=== PATIENT | male | born 1960 | race Caucasian/White ===

== ENCOUNTER 2016-08-04 19:40 | Emergency (ER) | payer MEDICAID ==
[2016-08-04] MEDS ORDERED: Albuterol/Ipratropium Neb 3 ML AERS HHN ONE ×2 (20:14→20:49)
--- NOTE | 2016-08-04 20:37 | ED Physician Chart ---
Chief Complaint/HPI - Patient Information Date Seen:: 08/04/16 Time Seen:: 20:32 Chief Complaint:: feels ill History of Present Illness:: 2 days hx of feeling worse sick.. pt has had diarhea 3x today brown and watery w no blood. felt like he had a fever earlier. feels chills/ache. 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 nonsmoker. no leg pains or edema. no abd p. no hx of asthma. pos DM and HTN. Allergies:: Allergies Allergy/AdvReac Type Severity Reaction Status Date / Time No Known Allergies Allergy Verified 08/04/16 20:21 Vitals:: Vital Signs - 8 hr 08/04/16 19:54 Temp 100.0 F HR 96 RR 17 BP 123/74 O2 Sat % 98 Historian:: Patient Review of Systems - Review of Systems General/Constitutional: Fever, No fever, Chills, No chills, No weight loss, No weakness, No diaphoresis, No edema, No loss of appetite Skin: No skin lesions, No rash, No bruising Head: No headache, No light-headedness Eyes: No loss of vision, No pain, No diplopia ENT: No earache, No nasal drainage, No sore throat, No tinnitus Neck: No neck pain, No swelling, No thyromegaly, No stiffness, No mass noted Cardio Vascular: No chest pain, No palpitations, No PND, No orthopnea, No edema Pulmonary: No SOB, Cough, No sputum, Wheezing GI: No nausea, No vomiting, Diarrhea, No pain, No melena, No hematochezia, No constipation, No hematemesis G/U: No dysuria, No frequency, No hematuria Musculoskeletal: No bone or joint pain, No back pain, No muscle pain Endocrine: No polyuria, No polydipsia Psychiatric: No prior psych history, No depression, No anxiety, No suicidal ideation Hematopoietic: No bruising, No lymphadenopathy Allergic/Immuno: No urticaria, No angioedema Neurological: No syncope, No focal symptoms, No weakness, No paresthesia, No headache, No seizure, No dizziness, No confusion, No vertigo Past Medical History - Past Medical History Past Medical History: HTN, DM Social History: Non Smoker, No Alcohol, No Drug Use Medication: Reviewed Family Medical History - Family Member Grandmother Hx Family Hypertension: Yes Physical Exam - Physical Examination General/Constitutional: Awake, Well-developed, well-nourished, Alert, No distress, GCS 15, Non-toxic appearing, Ambulatory Head: Atraumatic Eyes: Lids, conjuctiva normal, PERRL, EOMI Skin: Nl inspection, No rash, No skin lesions, No ecchymosis, Well hydrated, No lymphadenopathy ENMT: External ears, nose nl, TM canals nl, Nasal exam nl, Lips, teeth, gums nl , Oropharynx nl, Tonsils nl Other ENMT comments:: sig ear wax accumulations in b ear canals...i am barely able to see past and there is norm TMs. cn 2-12 wnl. no leg edema or leg pain. Neck: Nontender, Full ROM w/o pain, No JVD, No nuchal rigidity, No bruit, No mass, No stridor Respiratory: Nl effort/Exclusion, Clear to Auscultation, No Wheeze/Rhonchi/Rales Cardio Vascular: RRR, No murmur, gallop, rubs, NL S1 S2 GI: No tenderness/rebounding/guarding, No organomegaly, No hernia, Normal BS's, Nondistended, No mass/bruits, No McBurney tenderness : No CVA tenderness Extremities: No tenderness or effusion, Full ROM, normal strength in all extremities, No edema, Normal digits & nails Neuro/Psych: Alert/oriented, DTR's symmetric, Normal sensory exam, Normal motor strength, Judgement/insight normal, Mood normal, Normal gait, No focal deficits Misc: normal gait, Normal back, No paraspinal tenderness Labs/Radiology/EKG Results - Lab Results Results: Laboratory Tests 08/04/16 08/04/16 08/04/16 20:37 20:37 20:37 WBC 6.2 RBC 5.23 Hgb 14.7 Hct 43.8 MCV 83.7 MCH 28.0 MCHC Differential 33.5 RDW 12.5 Plt Count 312 MPV 8.3 Band Neutrophils % 0 Neutrophils (Manual) 69 Lymphocytes 16 L Monocytes 13 H Eosinophils 2 Basophils 0 Platelet Estimate ADEQUATE Platelet Morphology NORMAL RBC Morph Micro Appear NORMAL Sodium 125 L Potassium 4.7 Chloride 94 L Carbon Dioxide 26.1 Anion Gap 9.6 BUN 15 Creatinine 1.1 Est GFR ( Amer) > 60.0 Est GFR (Non-Af Amer) > 60.0 BUN/Creatinine Ratio 13.6 Glucose 301 H Hemoglobin A1c % Calcium 9.0 Total Bilirubin 1.1 H AST 20 ALT 23 Alkaline Phosphatase 54 Creatine Kinase Troponin I < 0.01 L Total Protein 7.3 Albumin 3.8 L Globulin 3.5 Albumin/Globulin Ratio 1.1 08/04/16 08/04/16 20:37 20:37 WBC RBC Hgb Hct MCV MCH MCHC Differential RDW Plt Count MPV Band Neutrophils % Neutrophils (Manual) Lymphocytes Monocytes Eosinophils Basophils Platelet Estimate Platelet Morphology RBC Morph Micro Appear Sodium Potassium Chloride Carbon Dioxide Anion Gap BUN Creatinine Est GFR ( Amer) Est GFR (Non-Af Amer) BUN/Creatinine Ratio Glucose Hemoglobin A1c % 10.2 H Calcium Total Bilirubin AST ALT Alkaline Phosphatase Creatine Kinase 55 Troponin I Total Protein Albumin Globulin Albumin/Globulin Ratio - Radiology Results Results: cxr nad - EKG Interpretations EKG Time:: 20:45 Rhythm: a-fib Rate: 92 Comments:: pt was unaware of any afib hx. he usually takes a asa /day but hasnt for last week bc of plan for dental sx. He is on atenolol for his BP which likely explains his SVR. ED Septic Shock - . Is Septic Shock (SBP<90, OR Lactate>4 mmol\L) present?: No - <6hrs of presentation: Vital Signs: Vital Signs - 8 hr 08/04/16 19:54 Temp 100.0 F HR 96 RR 17 BP 123/74 O2 Sat % 98 Reassessment (Disposition) - Reassessment Reassessment:: explained to pt I am concerned that his DM is very poorly ctrld and also he has new onset a-fib. Have advised pt we would admit him for DM ctrl and cardiac evaluation. I have explained he is at risk of a stroke w untxd afib and inadequate anticoagulation.... pt had many questions and I answered them as well as possible w patience. Pt said he needs to run home and turn off appliances etc...[place] the . I advised pt that it is not what I reccomend and if he wants to go home he should sign a ama form...he is free to return at any time. pt seems to be hesitant to be admitted..seems to think he doesnt need it? Have tried to reason w him.. he reports that he feels some better breathing since alb/atr neb (was ordered before ecg done ) Reassessment Condition:: Improved - Diagnosis Diagnosis:: 1 fever of unclear etiology 2 new onset a fib 3 poorly ctrld DM 4 left AMA - Aftercare/Follow up Instructions Aftercare/Follow-Up Instructions:: Counseled pt regarding lab results/diagnosis & need follow up - Patient Disposition Discharge/Transfer:: Against Medical Advice Condition at Disposition:: Improved ED Discharge Plan - Patient Disposition Admit/Discharge/Transfer: AGAINST MEDICAL ADVICE
[2016-08-04 21:00] LABS: HEMATOCRIT 43.8 % (39.0-49.0); HEMOGLOBIN 14.7 gm/dL (13.2-17.3); MEAN CELL VOLUME 83.7 fl (80-99); MEAN CORPUSCULAR HGB CONC 33.5 pg (28.0-36.0); MEAN PLATELET VOLUME 8.3 fl; PLATELET COUNT 312 Th/cmm (150-400); RED BLOOD COUNT 5.23 Mil/cmm (4.30-5.70); RED CELL DISTRIBUTION WIDTH 12.5 % (11.5-20.0); WHITE BLOOD COUNT 6.2 Th/cmm (4.8-10.8)
[2016-08-04] MEDS ORDERED: Aspirin 81mg Chewable Tab PO STA (21:09)
[2016-08-04 21:10] LABS: ALB/GLOB RATIO 1.1 (1.0-1.8); ALKALINE PHOSPHATASE 54 U/L (34-104); ANION GAP 9.6 (7.0-16.0); BILIRUBIN,TOTAL 1.1 mg/dL (0.3-1.0); BUN - UREA NITROGEN 15 mg/dL (7-25); BUN/CREATININE RATIO 13.6; CARBON DIOXIDE 26.1 mEq/L (21.0-31.0); CHLORIDE 94 mEq/L (98-107); CREATININE - SERUM 1.1 mg/dL (0.7-1.3); GLUCOSE 301 mg/dL (70-105); POTASSIUM SERUM 4.7 mEq/L (3.5-5.1); SGOT 20 U/L (13-39); SGPT/ALT 23 U/L (7-52); SODIUM SERUM 125 mEq/L (136-145)
[2016-08-04] MEDS ORDERED: Aspirin 81mg Chewable Tab ONE ×2 (21:34→21:35)
[2016-08-04 22:08] LABS: BAND NEUTROPHILE 0 % (0-10); BASOPHIL 0 % (0-3); EOSINOPHIL 2 % (0-5); NEUTROPHILS 69 % (40-80); PLATELET ESTIMATE ADEQUATE (NORMAL); TOTAL CELLS COUNTED 100
[2016-08-04 22:09] LABS: PLATELET MORPHOLOGY NORMAL (NORMAL)
--- NOTE | 2016-08-05 10:05 | Diagnostic Imaging Report ---
Portable chest x-ray HISTORY: Cough The heart size is difficult to assess with portable technique in a poor inspiration. No acute focal pulmonary processes. No hilar or mediastinal abnormalities. IMPRESSION: 1. No acute focal pulmonary processes
== END 2016-08-04 22:08 | disposition left against medical advice (07) ==
LOC: ER 19:40
DX: R50.9 Fever, unspecified (principal); I48.91 Unspecified atrial fibrillation; I10 Essential (primary) hypertension; E11.9 Type 2 diabetes mellitus without complications
CPT/HCPCS: 36415-UA; 71010-TC; 80053-TC; 82550-TC; 83036-90; 84484-TC; 85007-TC; 85027-TC; 93005; Z7610

== ENCOUNTER 2016-08-05 00:22 | Inpatient (IN) | payer MEDICAID ==
--- NOTE | 2016-08-05 00:47 | General Progress Note ---
Subjective - Review of Systems Service Date: 08/05/16 Events since last encounter: pt did return to ED at 12 midnt. he is now willing to be admission. His PE is basically unchanged w BP ok. pt alert and ambulatory around ED in no distress and talking w many questions. no neuro defecits. hrt irreg irreg w rate 80s abd s/nt extr nontndr. 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 she requests we start abx w zosyn has been ordered after mutual agreement. it is unclear what source is but ua has not returned. cxr was clear. will consult Dr Perez. 1 fever of unclear etiology in Diabetic 2 new onset a fib 3 poorly ctrld DM 4 hyponatremia Plan is admit to ICU for cardiac rule out and sepsis work up and correction of NA to improve cardiac stability condition: serious Objective - Physical Exam Vitals and I&O: Vital Signs Temp 98.9 F 08/05/16 00:25 Pulse 88 08/05/16 00:25 Resp 18 08/05/16 00:25 BP 128/82 08/05/16 00:25 Pulse Ox 97 08/05/16 00:25 Intake & Output 08/04/16 08/04/16 08/05/16 06:59 18:59 06:59 Weight (lbs) 96.162 kg Active Medications: Current Medications Piperacillin Sod/Tazobactam (Sod 3.375 gm/ Sodium Chloride) 50 mls @ 100 mls/ hr IV X1 ONE Stop: 08/05/16 01:06
[2016-08-05] MEDS ORDERED: Piperacillin Sodium/Tazobact 3.375 gm Vial IV ONE ×2 (00:57→04:49)
[2016-08-05] MEDS ORDERED: Hydrocodone/APAP 5mg/325mg Tab PO PRN (01:27)
[2016-08-05] MEDS: D5-0.45NS 1,000 ML IV SCH ×2 (02:48→23:34)
[2016-08-05 03:21] VITALS: BP 130/70
[2016-08-05] MEDS: INSULIN ASPART SLIDING SCALE 100 UNITS/ML UNIT SUBQ SCH ×4 (06:37→21:30)
[2016-08-05 12:24] LABS: URINE BILIRUBIN NEGATIVE (NEGATIVE); URINE COLOR YELLOW; URINE GLUCOSE (UA) 500 mg/dL (NEGATIVE); URINE KETONE NEGATIVE (NEGATIVE)
[2016-08-05 12:25] LABS: URINE BLOOD NEGATIVE (NEGATIVE); URINE EPITHELIAL CELLS OCCASIONAL /lpf (FEW); URINE PH 5.5; URINE PROTEIN NEGATIVE (NEGATIVE); URINE RBC NONE SEEN /hpf (0-5); URINE UROBILINOGEN 0.2 E.U./dL (0.2 - 1.0); URINE WBC 0-2 /hpf (0-5)
[2016-08-05 12:26] LABS: URINE BACTERIA FEW /hpf (NONE SEEN)
[2016-08-05] MEDS: LEVALBUTEROL HHN PRN ×3 (16:48→22:10)
[2016-08-05] MEDS: LEVALBUTEROL HHN SCH (22:10)
--- NOTE | 2016-08-06 01:02 | History & Physical ---
HISTORY OF PRESENT ILLNESS: This is a 56-year-old male who was admitted here through the emergency room for the evaluation of his new onset atrial fibrillation and rule out acute coronary syndrome. Other medical issues also include uncontrolled diabetes, sugar in the range of 300. This patient is a 56-year-old male who was known to our practice in the past, but he has not been a regular patient and he has come to our office only once with a history of diabetes and hypertension. His first visit also was to be referred to a precision lens technician for the evaluation of his abscess on the left arm and on the scalp on the left side. We did do the initial visit and gave him all the routine labs to be done and recorded his medications which was he was taking 1000 mg of metformin once a day and 10 mg of glipizide daily in the morning for the diabetes and he also was on atenolol 100 mg daily and enalapril for his hypertension and diabetic nephropathy. The patient was very noncompliant and did not go for his labs and according to him he says that he went through a few financial difficulties and also family problems and he was taking care of his mother for 5 years who and his father who does not live in [place] was also going through his last stages of his life and he was caring of him and he also , so during that process, the patient says that he has lost his job in the sense he could not make the money and he lost his home and several factors affected his way of living and his diet, exercise, etc. Hence, his diabetes became uncontrolled and he also stopped checking his blood sugar because his machine was not working, but he did not follow up with the office anytime, but this time, he came to the emergency room with a history of cough and chest pain more so when he coughed, and also shortness of breath and with the bronchospasm and in the emergency room, he was evaluated with all his lab work which shows that his hemoglobin A1c was 10.2 and his glucose was 312, and his sodium was decreased to 125. Chest x-ray was negative, but EKG has shown atrial fibrillation, which was rate controlled, probably because of the atenolol 100 mg and at that point, the patient, because he was noncompliant and we wanted to bring him for the observation and to be evaluated by a industrial education teacher and also to rule out acute coronary syndrome. So, he was put under telemetry in the [facility], and the patient was monitored closely and IV fluids were started, and also sepsis workup was done in lieu of his history of abscess in the past and also his diabetes, uncontrolled and him not feeling well and the cough, shortness of breath, and bronchospasm. Antibiotics Zosyn 3.125 mg started in the IV, which was continued. FAMILY HISTORY: The patient's family history is significant for diabetes for his mother and father in the later stages and history of some cancer in the family, but no other significant family history noted. PAST MEDICAL HISTORY: As mentioned above in the history of present illness. He has a history of diabetes, hypertension, and history of abscess in the past. Also, he had a history of panic attack x 1 and unspecified anxiety. MEDICATION LIST: See the reconciliation list. He is on metformin 1000 mg once a day; 10 mg of glipizide once a day; atenolol 100 mg; enalapril, check the dose in the chart; and he also takes as needed Ativan for his unspecified anxiety. ALLERGIES: None. SOCIAL HISTORY: He denied smoking, drugs, or alcohol abuse. 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 ALLERGIES: None to any medication. REVIEW OF SYSTEMS: All the 12-point system was reviewed and then the patient currently denied having any fever, denied having any neurological symptoms of headaches, dizziness, and of seizures and denied chest pain or palpitations, but he was complaining of the bronchospasm, cough, and shortness of breath and unexplained fever on and off, which made him feel really sick. Endocrine donovan, he has a history of diabetes, which is currently uncontrolled and abdomen has no abdominal distention and no abdominal pain. Genitourinary donovan, no dysuria, and no polyuria. Extremities have no clubbing and no edema. PHYSICAL EXAMINATION: GENERAL: He is a well-grown, well-behaved gentleman who was apologizing for not coming to the clinic on a regular basis, and he is well developed and well grown, and he weighs about 96.16 kg. VITAL SIGNS: Temperature 98, pulse 77, blood pressure 109/61, respirations 17, and saturation 95% on the room. HEAD: Atraumatic and normocephalic. EYES: Pupils are reactive to light and equal bilaterally. EARS, NOSE, AND THROAT: Normal. MOUTH: He is scheduled for dental work. Dentures to be given for the upper jaw next week, but now he is not sure whether he will get it done now because of his hospitalization, otherwise there is no other issue. NECK: Supple. No JVD. LUNGS: Clear to auscultate and no wheezing was noted except shallow breathing and decreased breath sounds bilaterally. S1 and S2 heard. Rate was controlled and as per the EKG, it is atrial fibrillation, newly diagnosed because never known before. EXTREMITIES: No clubbing. No cyanosis. No edema. His upper left extremity has an abscess, which was removed by Dermatology and he also had an abscess in the scalp, otherwise skin turgor is normal and no other lesions noted. NEUROLOGIC: Nonfocal. PSYCHIATRIC: Negative except for a history of panic attack x 1 and unspecified anxiety on and off, which has resolved with Xanax. LABORATORY DATA: Reviewed and labs showed sodium of 125, potassium of 4.7, chloride 94, pO2 of 26.1. BUN of 15 and creatinine of 1.1. Glucose 301. WBC 6.2, hemoglobin 14.7, hematocrit 43.8, and platelet 312,000. Hemoglobin A1c of 10.2 and lactic acid 1.27 within normal limits. CPK 219 also within the range. Troponin less than 0.01. ASSESSMENT: This is a 56-year-old male with; 1. Atrial fibrillation, new onset, rate controlled. 2. Rule out acute coronary syndrome. 3. Uncontrolled diabetes and hyperglycemia. 4. Hypertension. 5. History of abscess on the left arm and the scalp in the past. 6. Cough, shortness of breath, and bronchospasm. 7. Anxiety, unspecified. 8. Fever of unclear etiology. 9. Hyponatremia. 10. Full Code. PLAN: To admit him to the Tele and continue his cardiac enzymes every 8 hours x 3. Electronic Prepress Operator Roddy Perez will be consulted to evaluate his atrial fibrillation in the light of his uncontrolled diabetes and also to rule out acute coronary syndrome. Antibiotics will be continued in lieu of the sepsis workup and fever of unclear etiology. Breathing treatments will be given with the Xopenex as a routine 3 times a day and then p.r.n. q. 4h. for the cough, shortness of breath, and bronchospasm. ADA diet of 1800 and low-sodium will be given and will continue the IV fluid. We will monitor the patient. Accu-Chek will be done with a sliding scale with regular insulin. Plan is to observe him till tomorrow and if the Cardiology workup comes out negative and if his cardiac enzymes are negative and his sugars are well controlled, then the patient will be discharged tomorrow probably with a followup in my clinic. JOB# [id number]
[2016-08-06 06:42] LABS: ANION GAP 2.5 (7.0-16.0); BUN - UREA NITROGEN 12 mg/dL (7-25); CALCIUM SERUM 9.3 mg/dL (8.6-10.3); CARBON DIOXIDE 26.8 mEq/L (21.0-31.0); CHLORIDE 101 mEq/L (98-107); GLUCOSE 241 mg/dL (70-105); POTASSIUM SERUM 4.3 mEq/L (3.5-5.1); SODIUM SERUM 126 mEq/L (136-145)
[2016-08-06] MEDS: INSULIN ASPART SLIDING SCALE 100 UNITS/ML UNIT SUBQ SCH ×2 (06:43→11:59)
[2016-08-06] MEDS: LEVALBUTEROL HHN SCH (07:30)
--- NOTE | 2016-08-06 12:09 | Infectious Disease Prog Note ---
Infectious Disease Subjective - Review of Systems Service Date: 08/06/16 Subjective: [id number] Infectious Disease Objective - Results Result Diagrams: 08/06/16 05:47 Recent Labs: Laboratory Last Values Sodium 126 mEq/L (136-145) L 08/06/16 05:47 Potassium 4.3 mEq/L (3.5-5.1) 08/06/16 05:47 Chloride 101 mEq/L (98-107) 08/06/16 05:47 Carbon Dioxide 26.8 mEq/L (21.0-31.0) 08/06/16 05:47 Anion Gap 2.5 (7.0-16.0) L 08/06/16 05:47 BUN 12 mg/dL (7-25) 08/06/16 05:47 Creatinine 1.0 mg/dL (0.7-1.3) 08/06/16 05:47 Est GFR ( Amer) > 60.0 ml/min 08/06/16 05:47 Est GFR (Non-Af Amer) > 60.0 ml/min 08/06/16 05:47 BUN/Creatinine Ratio 12.0 08/06/16 05:47 Glucose 241 mg/dL (70-105) H 08/06/16 05:47 POC Glucose 237 MG/DL (70 - 105) H 08/06/16 11:56 Whole Bld Lactic Acid 1.27 mmol/L (0.60-2.00) 08/05/16 00:52 Calcium 9.3 mg/dL (8.6-10.3) 08/06/16 05:47 Creatine Kinase 73 U/L (30-223) 08/05/16 19:04 Troponin I < 0.01 ng/mL (0.01-0.05) L 08/05/16 19:04 Urine Source RANDOM 08/05/16 11:54 Urine Color YELLOW 08/05/16 11:54 Urine Clarity CLEAR (CLEAR) 08/05/16 11:54 Urine pH 5.5 08/05/16 11:54 Ur Specific [place] 1.015 (1.005-1.030) 08/05/16 11:54 Urine Protein NEGATIVE mg/dL (NEGATIVE) 08/05/16 11:54 Urine Glucose (UA) 500 mg/dL (NEGATIVE) H 08/05/16 11:54 Urine Ketones NEGATIVE mg/dL (NEGATIVE) 08/05/16 11:54 Urine Blood NEGATIVE (NEGATIVE) 08/05/16 11:54 Urine Nitrate NEGATIVE (NEGATIVE) 08/05/16 11:54 Urine Bilirubin NEGATIVE (NEGATIVE) 08/05/16 11:54 Urine Urobilinogen 0.2 E.U./dL (0.2 - 1.0) 08/05/16 11:54 Ur Leukocyte Esterase NEGATIVE (NEGATIVE) 08/05/16 11:54 Urine RBC NONE SEEN /hpf (0-5) 08/05/16 11:54 Urine WBC 0-2 /hpf (0-5) 08/05/16 11:54 Ur Epithelial Cells OCCASIONAL /lpf (FEW) 08/05/16 11:54 Urine Bacteria FEW /hpf (NONE SEEN) 08/05/16 11:54 - Physical Exam Vitals and I&O: Vital Signs Temp 99.3 F 08/06/16 04:00 Pulse 100 08/06/16 07:32 Resp 18 08/06/16 07:32 BP 111/61 08/06/16 10:14 Pulse Ox 99 08/06/16 07:32 Intake & Output 08/05/16 08/06/16 08/06/16 18:59 06:59 18:59 Intake Total 1950 1450 Balance 1950 1450 Intake: Intake, IV Amount 100 1050 D5-0.45NS 1,000 ml @ 60 1000 mls/hr IV .[id number] [facility] Rx #:[id number] Piperacillin Sodium/ 100 50 Tazobact 3.375 gm In Sodium Chloride 0.9% 50 ml @ 100 mls/hr IV Q6HR [facility] Rx#:[id number] Oral 1850 400 Other: # Voids 4 3 Active Medications: Current Medications Acetaminophen (Tylenol) 650 mg PO Q4H PRN PRN Reason: Mild Pain or Fever >101 Stop: 10/04/16 01:26 Acetaminophen/Hydrocodone Bitart (Campbell 5mg/325mg) 1 tab PO Q4H PRN PRN Reason: Pain (Severe) Stop: 10/04/16 01:26 Atenolol (Tenormin) 100 mg PO DAILY [facility] Stop: 10/05/16 08:59 Last Admin: 08/06/16 10:14 Dose: Not Given Enalapril Maleate (Vasotec) 20 mg PO DAILY [facility] Stop: 10/05/16 08:59 Last Admin: 08/06/16 10:14 Dose: Not Given Glipizide (Glucotrol) 10 mg PO BID [facility] Stop: 10/04/16 08:59 Last Admin: 08/06/16 09:50 Dose: 10 mg Dextrose/Sodium Chloride (D5-0.45ns) 1,000 mls @ 60 mls/hr IV .[id number] [facility] Stop: 10/04/16 01:16 Last Admin: 08/05/16 23:34 Dose: 60 mls/hr Levofloxacin (Levaquin Pb) 500 mg in 100 mls @ 100 mls/hr IV Q24HR [facility] Stop: 10/05/16 11:59 Insulin Aspart (Novolog Insulin Sliding Scale) 0 units SUBQ ACHS [facility] PRN Reason: Protocol Stop: 10/04/16 07:29 Last Admin: 08/06/16 11:59 Dose: 4 units Metformin HCl (Glucophage) 1,000 mg PO BID [facility] Stop: 10/04/16 08:59 Last Admin: 08/06/16 09:45 Dose: 1,000 mg Miscellaneous (Misc Inhaler) 1 inh HHN TIDRT [facility] Stop: 10/04/16 14:59 Last Admin: 08/06/16 07:30 Dose: 1 inh Miscellaneous (Misc Inhaler) 1 inh HHN Q4HRT PRN PRN Reason: Shortness of Breath Stop: 10/04/16 10:59 Last Admin: 08/05/16 22:10 Dose: 1 inh Oseltamivir Phosphate (Tamiflu) 75 mg PO BID [facility] Stop: 08/11/16 16:59
[2016-08-06] MEDS ORDERED: Levofloxacin 500mg/100mL 500 MG/100 ML BAG IV SCH (13:00)
[2016-08-06] MEDS ORDERED: LEVALBUTEROL INH SCH (15:00)
--- NOTE | 2016-08-06 21:37 | Consultation ---
The patient of Dr. Talley. HISTORY AND PHYSICAL: This is a 56-year-old male patient who has been seen by Dr. Talley for abscess in the left arm and left scalp, had been brought in because of new onset of atrial fibrillation. No history of palpitation. PAST MEDICAL HISTORY: The patient has a history of diabetes, hypertension, hyperlipidemia, abscess in the left arm, left scalp and anxiety. FAMILY HISTORY: Unremarkable. SOCIAL HISTORY: No history of smoking or alcohol abuse. ALLERGIES: None. PHYSICAL EXAMINATION: VITAL SIGNS: Blood pressure 130/80, pulse 110 irregular and respirations 20. HEAD: Normocephalic. No lumps or bumps. EYES: Pupils equal, reactive to light. Fundi show AV nicking, sclerae white, conjunctivae pink. NECK: Carotid 2+. Normal upstroke. JVD flat. Thyroid not palpable. Lymph nodes not palpable. CHEST: Shows increased AP diameter. No kyphosis or scoliosis. LUNGS: Bilateral bronchovesicular breath sounds. HEART: PMI fifth intercostal space with [id number] line. S1 and S2. No S3 or S4. Systolic murmur, grade 2/6, lower left sternal border without radiation. ABDOMEN: Soft. Liver, spleen not palpable. No organomegaly. Bowel sounds are active. NEUROLOGIC: Unremarkable. EXTREMITIES: Peripheral pulses 2+. No pedal edema. CLINICAL IMPRESSION: Atrial fibrillation, hypertension, diabetes mellitus type 2, anxiety, abscess in the left arm and left scalp. The patient's heart rate is controlled. PLAN: We will anticoagulate the patient and also get an echocardiogram. JOB# [id number]
--- NOTE | 2016-08-06 23:28 | Discharge Summary ---
HOSPITAL COURSE: This patient is a 56-year-old male who was admitted here to rule out acute coronary syndrome and uncontrolled diabetes and hypertension and this patient was treated____, the patient in the Emergency Room did not find any focal deficit except he was having cough and pain in the lungs when he coughs and the chest x-ray was negative, but still the sepsis workup was done and the patient was started on the antibiotic on Zosyn and subsequently, the patient was found to have recently diagnosed atrial fibrillation, but the rate was controlled because he was on atenolol and hence he was admitted here for the observation and today, ____Chris, the [employer] consultant has ordered for an echocardiogram and then noted the report and ejection fraction is greater than 67%. The patient did not have any abnormalities and his cardiac enzymes x 3 were all normal and his sugars were also controlled about 240 and he was getting regular insulin coverage and today, his labs shows a sodium of 126, which was low, 120 on admission and today, it is 126 and potassium 4.3, 101 chloride, 26.8 CO2, BUN and creatinine is 12/1.0, glucose is 241 and only abnormality is the UA, had the 500 glucose, which was glucosuria and hence the patient's diagnosis was the viral syndrome and was treated appropriately and the patient's review of the system on the day of discharge, all the 12-point exam was negative. PHYSICAL EXAMINATION: VITAL SIGNS: Stable. HEENT: Head is atraumatic and normocephalic. Eyes: Pupils were reactive to light equally and bilaterally. Ears were normal. Mouth and throat was normal. Pharynx was not inflamed. HEART: S1, S2 heard. LUNGS: Clear to auscultate and his cough was resolved with the breathing treatments. ABDOMEN: Soft and bowel sounds are present. EXTREMITIES: Had no clubbing and no cyanosis and no edema. DISCHARGE DIAGNOSES: At the time of the discharge is, 1. Acute viral syndrome, flu-like symptoms. 2. Uncontrolled diabetes secondary to noncompliance. 3. Hypertension. 4. New-onset atrial fibrillation. 5. Acute coronary syndrome, ruled out. PLAN: Is to discharge him and I adjusted the medications, the metformin to 1000 mg b.i.d. and glipizide to take 10 mg b.i.d. and atenolol to continue 100 mg every day and also for the atrial fibrillation, we started him on 10 mg of Xarelto and as per the ID, the antibiotics were discontinued and started him on Tamiflu 75 mg b.i.d. for 5 days and the prescriptions were given for the same and also for the glucometer and lancets and test strips and follow up in my office in 2 weeks with glucose records fasting and 2 hours postprandial and I discussed at length the importance of taking care of himself and to follow up with [employer] consultant also in 4 weeks. JOB# [id number]
--- NOTE | 2016-08-07 04:10 | Consultation ---
REFERRING PHYSICIAN: Dr. Talley. REASON FOR CONSULTATION: Sepsis, pneumonia. HISTORY OF PRESENT ILLNESS: The patient is a 56-year-old with a past medical history of diabetes mellitus type 2, hypertension, history abscesses in the past, anxiety disorder, panic disorder developed cough and shortness of breath associated with fever. Initially, patient stated that he had similar symptom in the past this season. He took some antibiotics, he felt better. However, he comes back again with cough and shortness of breath. On initial evaluation, the patient's temperature was 100 degrees Fahrenheit and WBC count was 6200. The patient signed AMA. However, he comes back again to get admitted as he was not getting better. The patient was started on Zosyn and ID consult was called for further antibiotic management. At this time, patient complains of some joint and muscle pain. Besides this, he was found to have atrial fibrillation, which is new for him. However, he remains afebrile. He felt better. PAST MEDICAL HISTORY: Includes diabetes mellitus type 2, hypertension, anxiety disorder, panic disorder, skin abscesses in the past. ALLERGIES: NKDA. MEDICATIONS: See medication reconciliation sheet. Antibiotic donovan, the patient is on Zosyn. SOCIAL HISTORY: The patient lives at home. Denies any smoking, alcohol or drug use. The patient is single at this time and he is real-estate business quality assurance analyst. FAMILY HISTORY: Noncontributory. REVIEW OF SYSTEMS: GENERAL: The patient has no subjective fever, no chills. The patient had no diaphoresis. The patient has generalized weakness. HEENT: No diplopia, no photophobia, no sore throat. RESPIRATORY: The patient has cough and shortness of breath which is improving. No wheezing. CARDIOVASCULAR: No chest pain or palpitation. GASTROINTESTINAL: No nausea, no vomiting, no constipation, no abdominal pain. The patient has watery diarrhea, which is also improving. GENITOURINARY: No dysuria, no hematuria. NEUROLOGIC: No headache or dizziness. No focal weakness. PHYSICAL EXAMINATION: CURRENT VITAL SIGNS: Shows temperature is 99.3 degrees Fahrenheit, pulse 100, respiration is 18, and blood pressure is 111/61. GENERAL: The patient is comfortable lying in the bed, not in acute distress, well nourished. HEENT: Head is normocephalic, atraumatic. Oral cavity moist, pink tongue. Eyes: No pallor, no icterus. Pupils PERRLA, EOMI. NECK: Supple, no JVD, no carotid bruit. Trachea in midline. CHEST: Bilateral breath sounds. No crackles or wheezing. HEART: S1, S2 within normal limit, regular rhythm. No murmur, no gallop. ABDOMEN: Soft, nontender, nondistended. Bowel sounds present. EXTREMITIES: No cyanosis, no clubbing, no edema. NEUROLOGIC: Alert, awake, oriented x 3. LABORATORY DATA: Current lab shows WBC count is 6200 on 08/04/2016, hemoglobin 14.7, hematocrit is 43.8 and platelets are 312,000, neutrophils 69%. Sodium is 126, potassium 4.3, chloride 101, bicarb is 26.8, BUN is 12, creatinine 1 and glucose is 241. Urinalysis shows negative nitrite, negative leukoesterase. Chest x-ray shows no active disease, as per the note. Blood culture 2 sets are negative. IMPRESSION: 1. Cough, mild; low grade fever, suspect influenza. The patient stated that he was on exposed to many people with flu. 2. Atrial fibrillation. 3. Diabetes mellitus type 2. 4. Hypertension. 5. Noncompliant. RECOMMENDATIONS: We will change the antibiotic to Levaquin and Tamiflu. Check influenza A and B screen. Thank you, Dr. Talley for involving me taking care of this patient. JOB# [id number] MTDD
--- NOTE | 2016-08-07 19:00 | Cardiology ---
The patient of Dr. Talley. M-MODE ECHOCARDIOGRAM: MITRAL VALVE: Anterior leaflet of mitral valve shows normal excursion, EF velocity. Posterior leaflet of mitral valve shows normal excursion. Left ventricular posterior wall showed normal thickness excursion. Interventricular septum showed normal thickness excursion. Ejection fraction 60%. Left atrium enlarged at 4.1 cm. Aortic root shows normal dimension, normal excursion of aortic leaflets. CONCLUSION: Mild hypertrophy of the left ventricle, left atrial enlargement, ejection fraction 60%. 2-D ECHO: Long axis view showed normal sized left ventricle with minimal hypertrophy of the left ventricle. Left atrium enlarged. Aortic root showed normal dimension, normal excursion of aortic leaflets. Short axis view of mitral valve normal. Short axis view aortic valve normal. Apical four chamber view showed normal sized left ventricle with hypertrophy of the left ventricle. Left atrium enlarged. Right ventricular cavity, right atrium normal, no pericardial effusion. Ejection fraction 60%. CONCLUSION: Minimal hypertrophy of the left ventricle, left atrial enlargement, ejection fraction 60%. Doppler study shows prominent A wave consistent with poor compliance of left ventricle with mild tricuspid regurgitation. [facility]# [id number]
== END 2016-08-06 14:35 | disposition home or self-care (01) | DRG 201 ==
LOC: ER 00:22 → TELE 01:10
PROVIDERS: ADMIT General Practice; ATTEND General Practice
DX: I48.91 Unspecified atrial fibrillation (principal); E11.21 Type 2 diabetes mellitus with diabetic nephropathy; J11.1 Influenza due to unidentified influenza virus with other respiratory manifestations; E11.65 Type 2 diabetes mellitus with hyperglycemia; I10 Essential (primary) hypertension; F41.9 Anxiety disorder, unspecified; E87.1 Hypo-osmolality and hyponatremia; E66.9 Obesity, unspecified; R19.7 Diarrhea, unspecified; J98.01 Acute bronchospasm; L02.811 Cutaneous abscess of head [any part, except face]; L02.414 Cutaneous abscess of left upper limb; R05 Cough; Z91.14 Patient's other noncompliance with medication regimen; Z68.30 Body mass index [BMI] 30.0-30.9, adult
CPT/HCPCS: 36415-UA; 80048-TC; 81001-TC; 82550-TC; 82948-90; 83605; 84484-TC; 87070; 93005; 94640; 94760; J1815; J1956; J2543

== ENCOUNTER 2018-03-03 17:34 | Emergency (ER) | payer MEDICAID ==
[2018-03-03 18:42] LABS: % BASOPHILS 0.3 % (0.0-2.0); % EOSINOPHILS 2.5 % (0.0-5.0); % LYMPHOCYTES 17.1 % (20.0-50.0); % MONOCYTES 6.1 % (2.0-10.0); EOSINOPHILE ABSOLUTE 0.2 Th/cmm (0.1-0.4); HEMATOCRIT 44.7 % (41.0-60); HEMOGLOBIN 15.1 gm/dL (12-16); LYMPHOCYTE ABSOLUTE 1.4 Th/cmm (1.5-3.0); MEAN CELL VOLUME 84.9 fl (80-99); MEAN CORPUSCULAR HEMOGLOBIN 28.7 pg (26.0-30.0); MEAN CORPUSCULAR HGB CONC 33.8 pg (28.0-36.0); MEAN PLATELET VOLUME 7.5 fl; MONOCYTE ABSOLUTE 0.5 Th/cmm (0.3-1.0); NEUTROPHILE ABSOLUTE 6.3 Th/cmm (1.8-8.0); PLATELET COUNT 409 Th/cmm (150-400); RED BLOOD COUNT 5.26 Mil/cmm (4.30-5.70); WHITE BLOOD COUNT 8.4 Th/cmm (4.8-10.8)
[2018-03-03 18:59] LABS: ALB/GLOB RATIO 1.4 (1.0-1.8); ALBUMIN 4.2 gm/dL (4.2-5.5); ALKALINE PHOSPHATASE 48 U/L (34-104); ANION GAP 15.1 (7.0-16.0); BILIRUBIN,TOTAL 1.1 mg/dL (0.3-1.0); BUN - UREA NITROGEN 17 mg/dL (7-25); CALCIUM SERUM 9.8 mg/dL (8.6-10.3); CHLORIDE 97 mEq/L (98-107); GFR AFRICAN-AMERICAN > 60.0 ml/min (>90); GFR NON AFRICAN-AMERICAN > 60.0 ml/min; GLUCOSE 263 mg/dL (70-105); MAGNESIUM 1.5 mg/dL (1.9-2.7); PHOSPHOROUS 2.8 mg/dL (2.5-5.0); POTASSIUM SERUM 4.1 mEq/L (3.5-5.1); SGOT 17 U/L (13-39); SGPT/ALT 31 U/L (7-52); SODIUM SERUM 132 mEq/L (136-145); TOTAL PROTEIN,SERUM 7.2 gm/dL (6.0-8.3)
[2018-03-03 19:11] LABS: URINE SOURCE CLEAN C
[2018-03-03 19:17] LABS: URINE BILIRUBIN NEGATIVE (NEGATIVE); URINE BLOOD NEGATIVE (NEGATIVE); URINE CLARITY CLEAR (CLEAR); URINE COLOR YELLOW; URINE KETONE NEGATIVE (NEGATIVE)
[2018-03-03 19:18] LABS: URINE GLUCOSE (UA) >=1000 mg/dL (NEGATIVE); URINE LEUKOCYTE ESTERASE NEGATIVE (NEGATIVE); URINE MICROSCOPIC INDICATED? YES; URINE NITRATE NEGATIVE (NEGATIVE); URINE PH 5.5 (4.6 - 8.0); URINE PROTEIN NEGATIVE (NEGATIVE); URINE UROBILINOGEN 0.2 E.U./dL (0.2 - 1.0)
[2018-03-03 19:20] LABS: URINE BACTERIA OCCASIONAL /hpf (NONE SEEN); URINE EPITHELIAL CELLS FEW /lpf (FEW); URINE RBC 0-2 /hpf (0-5)
[2018-03-03 19:24] LABS: AMPHETAMINE URINE NEGATIVE (NEGATIVE); BARBITURATES URINE NEGATIVE (NEGATIVE); BENZODIAZEPINES QUAL URINE POSITIVE (NEGATIVE); CANNABINOID THC NEGATIVE (NEGATIVE); COCAINE METABOLITE QUAL URINE NEGATIVE (NEGATIVE); METHADONE URINE NEGATIVE (NEGATIVE); METHAMPHETAMINES QUAL URINE NEGATIVE (NEGATIVE); OPIATES (MORPHINE) QUAL. URINE NEGATIVE (NEGATIVE); PHENCYCLIDINE (PCP) URINE NEGATIVE (NEGATIVE); TRICYCLICS (TCA) QUAL. URINE NEGATIVE (NEGATIVE)
--- NOTE | 2018-03-04 08:27 | Diagnostic Imaging Report ---
Exam: CT examination of brain. HISTORY: Dizziness. Total DLP equals 717 CTDI equals 30.7 Findings: Multiple contiguous thin section of the brain were obtained from the base of skull to the vertex without administration of contrast material, no prior studies available comparison. The study demonstrates normal density brain parenchyma. There is no evidence for hemorrhage midline shift or edema. The cerebellum is intact. The bony calvarium demonstrates a maxillary sinus polyps versus mucous retention cyst. Clinical correlation is recommended. The bony calvarium demonstrate no evidence for blastic or lytic lesions. Calcification mastoid air cells appreciated. IMPRESSION: Essentially unremarkable exam of the brain. Maxillary sinuses mucous retention cysts versus polyps.
[2018-03-05 21:25] LABS: A1C % 8.5 % (4.0-6.0)
--- NOTE | 2018-04-01 12:54 | ER Physician Documentation ---
DATE OF SERVICE: HISTORY OF PRESENT ILLNESS: The patient presents complaining room spinning for 3 days, left ear infection in the past, history of left posterior auricular abscess and Akbar's palsy 3-1/2 weeks ago. 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 PHYSICAL EXAMINATION: GENERAL: The patient is an overweight male in no apparent distress. ____ Vertigo signs are positive. Cranial nerves 2-12 are intact. He has an obvious left facial palsy, which according to the patient has decreased somewhat. There is no evidence of any stroke whatsoever. LUNGS: Clear to auscultation bilaterally. COR: Regular rate and rhythm. ABDOMEN: Obese, nontender, nondistended. Motor exam within normal limits. Sensory exam within normal limits. He does have cerumen impaction present in both ears. There is no evidence of ear infection whatsoever. The patient received IV fluid hydration and lab work. His glucose little elevated after IV fluid hydration and being reassured that his exam was negative and a head CT that was performed was negative. The patient was discharged with a diagnosis of vertigo and cerumen impaction as well as uncontrolled diabetes mellitus and resolving Akbar's palsy. ASSESSMENT/PLAN: Vertigo. The patient was given a prescription for meclizine 25 mg 1 p.o. q.i.d., #20 and Zofran 4 mg ODT 1 p.o. q.8h. p.r.n. He said that when he has had the dizziness in the past and the vertigo, he has felt nauseated. With respect to his left ear infection, there is no evidence whatsoever. There is no evidence of a left posterior auricular abscess whatsoever. With respect to his cerumen impaction, he was advised to use eardrops and to follow up with his ear, nose and throat doctor that he had and he said to his Akbar's palsy. He has already been treated with steroids and acyclovir and is resolving. According to the patient, he actually showed me pictures of what it was like before. JOB# [id number]
== END 2018-03-03 21:31 | disposition home or self-care (01) ==
LOC: ER 17:34
DX: R42 Dizziness and giddiness (principal); H61.23 Impacted cerumen, bilateral; R11.0 Nausea; E11.9 Type 2 diabetes mellitus without complications
CPT/HCPCS: 36415-UA; 70450-TC; 80053-TC; 80307; 81001-TC; 82948-90; 83036-90; 83735-TC; 84100-TC; 84443-TC; 84484-TC; 85025-TC; 85379-TC; 93005